=== PATIENT | female | born 1950 ===

== ENCOUNTER 2020-09-26 11:22 | Outpatient (CLI) | payer OTHER | END 2020-09-26 11:32 | disposition home or self-care (01) | LOC: PPH VACUNA 11:22 | PROVIDERS: ATTEND Emergency Medicine Pediatric Emergency Medicine | DX: Z23 Encounter for immunization (principal) ==

== ENCOUNTER → 2020-10-17 08:00 | Outpatient (CLI) | payer OTHER | END | disposition home or self-care (01) | LOC: PPH VACUNA 08:00 | PROVIDERS: ATTEND Emergency Medicine Pediatric Emergency Medicine | DX: Z23 Encounter for immunization (principal) ==